=== PATIENT | female | born 1965 | race Caucasian/White ===

== ENCOUNTER → 2016-12-07 | Outpatient (CLI) | payer OTHER ==
[~2016-12-07] MED LIST: APIX5 PO; DILTCD180 PO; MEGE40SU PO; METO25 PO; RANI150 PO
--- NOTE | 2016-12-07 10:49 | RADRPT ---
EXAM DATE/TIME: 12/07/2016 09:38 [facility] COMPARISON: No previous studies available for comparison. 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 SURGICAL HISTORY : None. ENCOUNTER: Initial ACUITY: 3 weeks PAIN SCORE: 4/10 LOCATION: Left wrist FINDINGS: There is no evidence of acute fracture. Bony mineralization is normal. There is minimal osteoarthriti s involving the first carpometacarpal compartment. Joint spaces are maintained. CONCLUSION: 1. There is no evidence of acute fracture. 2. If there is concern for soft tissue injury then MRI could be performed Jens Chiang MD on December 07, 2016 at 10:46 Board Certified Radiologist. This report was verified electronically.
== END ==
LOC: HRAD 09:15
DX: M25.532 Pain in left wrist (principal); M25.432 Effusion, left wrist
CPT/HCPCS: 73110

== ENCOUNTER → 2017-06-29 | Outpatient (CLI) | payer OTHER ==
--- NOTE | 2017-06-29 14:36 | RADRPT ---
EXAM DATE/TIME: 06/29/2017 12:02 [facility] COMPARISON: No previous studies available for comparison. INDICATIONS : Right medial knee pain with activity, no known injury. MEDICAL HISTORY : None. SURGICAL HISTORY : None. ENCOUNTER: Initial ACUITY: >1 year PAIN SCORE: 7/10 LOCATION: Right medial knee FINDINGS: There is moderate osteoarthritis with joint space narrowing and marginal osteophyte formation in the medial tibiofemoral compartment with less severe involvement laterally. There is no evidence of acut e fracture. Bony mineralization is normal. There is spur formation off the superior aspect of the pat pradip. CONCLUSION: 1. Moderate osteoarthritis as described above. Jens Chiang MD on June 29, 2017 at 14:32 Board Certified Radiologist. This report was verified electronically.
--- NOTE | 2017-06-29 14:37 | RADRPT ---
EXAM DATE/TIME: 06/29/2017 12:05 [facility] COMPARISON: No previous studies available for comparison. INDICATIONS : Left medial knee pain with activity, no known injury. MEDICAL HISTORY : None. SURGICAL HISTORY : None. ENCOUNTER: Initial ACUITY: >1 year PAIN SCORE: 2/10 LOCATION: Left knee FINDINGS: There is moderate osteoarthritis with joint space narrowing and marginal osteophyte formation in the medial tibiofemoral compartment less severe than the contralateral side. There is spur formation off the superior aspect of the patella. There is no evidence of joint effusion. CONCLUSION: 1. Mild to moderate osteoarthritis. Jens Chiang MD on June 29, 2017 at 14:35 Board Certified Radiologist. This report was verified electronically.
== END ==
LOC: HRAD 11:45
PROVIDERS: ATTEND Family Medicine
DX: M25.561 Pain in right knee (principal); M25.562 Pain in left knee
CPT/HCPCS: 73564